=== PATIENT | female | born 1990 | race Caucasian/White ===

== ENCOUNTER 2016-12-19 13:19 | Emergency (ER) | payer SELFPAY | END 2016-12-19 14:00 | disposition home or self-care (01) | LOC: ER1 13:19 | DX: L03.116 Cellulitis of left lower limb (principal) | CPT/HCPCS: 99283 ==

== ENCOUNTER 2017-02-23 19:46 | Emergency (ER) | payer BC ==
[2017-02-23 21:07] LABS: HEMOGLOBIN 13.6 gm/dl (12.3-15.3); RED BLOOD COUNT 4.56 M/UL (4.00-5.10); WHITE BLOOD COUNT 9.1 K/UL (4.5-11.0)
[2017-02-23 21:28] LABS: BUN/CREATININE RATIO 12 (0-10)
== END 2017-02-24 02:25 | disposition short-term general hospital (02) ==
LOC: ER1 19:46
PROVIDERS: Emergency Medicine
DX: G40.409 Other generalized epilepsy and epileptic syndromes, not intractable, without status epilepticus (principal); F17.200 Nicotine dependence, unspecified, uncomplicated; Z79.899 Other long term (current) drug therapy
CPT/HCPCS: 36415; 70450; 80048; 80307; 84703; 85025; 96365; 99291; J1953